=== PATIENT | female | born 1995 | race Caucasian/White ===

== ENCOUNTER 2018-01-12 01:12 | Emergency (ER) | payer OTHER ==
[2018-01-12 01:17] VITALS: BP 145/100
--- NOTE | 2018-01-12 01:46 | EDPHY ---
H & P Stated Complaint: pt swallowed a nickel and is now having a panic attack Time Seen by Provider: 01/12/18 01:19 HPI/ROS: Chief Complaint: Swallowed foreign body HPI: 22-year-old woman is visiting from out of town friends. She has not slept in 24 hr and had a couple beers tonight. On a dare she swallowed a nickel approximately 4 hr ago. She did not have any difficulty swallowing at but since then has had the sensation of a foreign body in her throat. She has being getting increasingly concerned that she may have that knuckle lodged in her esophagus or in her neck. She is not having shortness of breath. No cough. She states she has been able to drink liquids since. Denies any abdominal pain. No nausea or vomiting. Feels like she is having a panic attack , is hyperventilating and crying. ROS: 10 systems were reviewed and were negative except those elements noted in the HPI. PMH: Denies Social History: No smoking, occasional alcohol, no recreational drug use Family History: non-contributory Physical Exam: Gen: Awake, Alert, crying, consolable HEENT: Nose: no rhinorrhea Eyes: PERRLA, EOMI Mouth: Moist mucosa Neck: Supple, no JVD Chest: nontender, lungs clear to auscultation Heart: S1, S2 normal, no murmur Abd: Soft, non-tender, no guarding Back: no CVA tenderness, no midline tenderness Ext: no edema, non-tender Skin: no rash Neuro: CN II-XII intact, Sensation grossly intact, Strength 5/5 in bilateral upper and lower extremities - Personal History LMP (Females 10-55): IUD In Place Current Tetanus/Diphtheria Vaccine: Yes Current Tetanus Diphtheria and Acellular Pertussis (TDAP): Yes - Medical/Surgical History Hx Asthma: No Hx Chronic Respiratory Disease: No Hx Diabetes: No Hx Cardiac Disease: No Hx Renal Disease: No Hx Cirrhosis: No Hx Alcoholism: No Hx HIV/AIDS: No Hx Splenectomy or Spleen Trauma: No Other PMH: appy - Social History Smoking Status: Never smoked Constitutional: Initial Vital Signs Temperature (C) 36.9 C 01/12/18 01:12 Heart Rate 112 H 01/12/18 01:12 Respiratory Rate 18 01/12/18 01:12 Blood Pressure 145/100 H 01/12/18 01:12 O2 Sat (%) 96 01/12/18 01:12 O2 Delivery Mode Room Air Allergies/Adverse Reactions: No Known Allergies Allergy (Unverified 01/12/18 01:17) Home Medications: Medication Instructions Recorded Adderall 10 MG (*) 01/12/18 Wellbutrin 100mg (*) 01/12/18 Medical Decision Making - Diagnostics Imaging Results: Soft tissue neck x-ray is normal, no evidence of metallic foreign body. Study interpreted by me. Imaging: I viewed and interpreted images myself ED Course/Re-evaluation: 22-year-old woman with concerns that she may have a metallic foreign body caught in her throat. I think this is unlikely but in order to reassure her obtained a soft tissue neck x-ray. There is no evidence of a metallic foreign body on knees. Study is normal. Patient has been reassured. She is calm. Abdomen is soft and benign. She has no cough or any other respiratory symptoms. I have assured her that it should pass without any difficulty. She will return for any concerns. Departure - Departure Disposition: Home, Routine, Self-Care Clinical Impression: Swallowed foreign body Condition: Good Instructions: Foreign Body Ingestion (ED) Additional Instructions: Return to the emergency department for increasing abdominal pain, uncontrolled nausea vomiting, cough, difficulty breathing, or any other concerns.
== END 2018-01-12 01:55 | disposition home or self-care (01) ==
DX: T18.9XXA Foreign body of alimentary tract, part unspecified, initial encounter (principal); Y93.89 Activity, other specified